=== PATIENT | female | born 1995 | race Caucasian/White ===

== ENCOUNTER 2017-11-22 14:42 | Emergency (ER) | payer BC ==
--- NOTE | 2017-11-22 15:31 | RAD ---
4 VIEWS RIGHT KNEE: Date: 11/22/17 INDICATION: Pain. FINDINGS: There is no fracture or dislocation. No joint capsular distention. IMPRESSION: No acute osseous abnormality of right knee. POS: [facility]
== END 2017-11-22 15:45 | disposition home or self-care (01) ==
LOC: MADERS 14:42
DX: S83.421A Sprain of lateral collateral ligament of right knee, initial encounter (principal); X58.XXXA Exposure to other specified factors, initial encounter